=== PATIENT | male | born 1985 | race Caucasian/White ===

== ENCOUNTER 2016-12-24 05:45 | Day surgery (SDC) | payer OTHER ==
[~2016-12-24] VITALS: Ht 188 cm; Wt 102.1 kg
--- NOTE | 2016-12-24 06:55 | NUR ---
RAILS UP X2 PT INSTRUCTED TO NOT GET OOB WITHOUT ASSIT.
--- NOTE | 2016-12-24 08:42 | NUR ---
12/24/16 0842 Janet Delgado 0830-PATIENT ARRIVED TO [facility] ON 8L MASK O2 SAT 99% ORAL AIRWAY IN PLACE NONAROUSABLE RN HOLDING AIRWAY. 0831-PATIENT AROUSING ORAL AIRWAY REMOVED. 0835-PATIENT REPORTING "CAN'T BREATHE" O2 SAT 99% PATIENT EDUCATED ON SLOW BREATHES AND BREATHING THROUGH MOUTH. PATIENT TO BE GIVEN 1MG VERSED IVP. PATIENT HAS PERIODS OF APNEA REQUIRES VERBAL PROMPTING TO TAKE DEEP BREATHES. PACKING TO NOSE. 8L MASK O2 SAT 100%
[2016-12-24] MEDS ORDERED: NORCO 5-325 TA1 EACH PO (09:53)
[2016-12-24] MEDS ORDERED: KEFLEX500 MG PO (09:54)
--- NOTE | 2017-01-21 15:10 | OR ---
[facility] [address], [place] [address] Signed DATE OF PROCEDURE: 12/24/16 PREOPERATIVE DIAGNOSIS: Septal deformity. POSTOPERATIVE DIAGNOSIS: Septal deformity. PROCEDURE: Septoplasty. SURGEON: Steve Huerta M.D. ANESTHESIA: General LMA, Gris Tran CRNA. PREOP HISTORY Vinh is a 31-year-old man with a history of nasal obstruction. He has a significant septal deformity, history of nasal trauma. He is taken to the operating for the above-mentioned procedures. OPERATIVE PROCEDURE AND FINDINGS After informed consent, the patient was taken the operating room, placed in supine position where general LMA anesthesia was induced. The patient and procedure were verified. The patient received preoperative intranasal oxymetazoline and intravenous Ancef. Headlight speculum exam of the nasal cavity showed his significant septal deformity with a large ridge on the left, anterior deflection on the right. The septal mucosa on both sides was injected with 1% Lidocaine with Epi, a total of 10 mL. The left hemitransfixion incision was made. Submucoperichondrial flap elevated on the left side. The septal ridge was excised with the Fatuma. Incision was made through septal cartilage a cm posterior to the mucosal incision and submucoperichondrial flap elevated on the right. All deviated septal bone and cartilage was excised with Fatuma. There was significant bony deformity posteriorly on the left. All obvious deformed cartilage and bone was removed and the septum was medialized in this manner. The incision was closed with 4-0 interrupted chromic. Packing was placed. An equal amount of Merocel 1 piece each side coated with Neosporin trimmed and tied anteriorly over a pad. The pharynx was suctioned clear of blood and secretions. The patient was then awakened, extubated, transported to recovery room in good condition. No complications. Blood loss minimal. No specimen. No drains. Packing with 1 piece of Merocel each nostril. Steve Huerta MD Electronically Signed By: STEVE HUERTA MD 01/21/17 1510 PATIENT NAME: VINH LOPEZ OPERATIVE REPORT DATE OF : 83 PHYSICIAN: STEVE HUERTA MD REPORT #: [id number] REPORT IS CONFIDENTIAL AND NOT TO BE RELEASED WITHOUT AUTHORIZATION [address] [place] [address] Signed SEVEN/Cl /[id number] cc: Malu Agudelo PA-C Electronically Signed By: STEVE HUERTA MD 01/21/17 1510 PATIENT NAME: VINH LOPEZ OPERATIVE REPORT DATE OF : 83 PHYSICIAN: STEVE HUERTA MD REPORT #: [id number] REPORT IS CONFIDENTIAL AND NOT TO BE RELEASED WITHOUT AUTHORIZATION
== END 2016-12-24 12:30 | disposition home or self-care (01) ==
LOC: OPS 05:45 → DS 05:45 → OPS 06:45
PROVIDERS: Otolaryngology
PROC: 09SM0ZZ Reposition Nasal Septum, Open Approach (ICD-10-PCS; principal; 2016-12-24 06:45)
DX: J34.2 Deviated nasal septum (principal); J30.2 Other seasonal allergic rhinitis; Z88.0 Allergy status to penicillin; Z90.89 Acquired absence of other organs; Z98.890 Other specified postprocedural states
CPT/HCPCS: 00160; J0690; J1100; J2250; J2405; J2704; J3010